=== PATIENT | female | born 1975 | race Caucasian/White ===

== ENCOUNTER 2016-08-11 23:11 | Inpatient (IN) | payer BC, OTHER ==
[~2016-08-11] VITALS: Ht 152.4 cm; Wt 63.5 kg
[~2016-08-11 23:11] MED LIST: AMITRIPTYLINE H25 M2 PO; DYRENIUM50 MG PO; IBUPROFEN 600600 M1 PO; INDOMETHACIN 5050 M1 PO; INDOMETHACIN 5050 MG PO; LISINOPRIL5 MG PO; MACROBID 100 M100 M1 PO; NORCO 5-325 TA1 EACH PO; ONDANSETRON HCL4 M2 PO; PEPCID20 MG PO; PHENERGAN 25 MG25 M1 PO; PREDNISONE 20 M20 MG PO; PROTONIX40 M1 PO; TRANSDERM-SCO1 PATC1 TD; ZOFRAN ODT4 MG PO
[2016-08-11 23:14] VITALS: BP 176/125
[2016-08-12 00:20] LABS: ABSOLUTE NEUTROPHILS 8.3 thou/uL (1.4-8.2); BASOPHILS 0.7 % (0.0-2.0); EOSINOPHILS 1.2 % (0.0-3.0); HEMATOCRIT 41.6 % (37.0-47.0); HEMOGLOBIN 14.4 gm/dL (12.0-15.0); LYMPHOCYTES 14.4 % (24.0-44.0); MCH 36.5 pg (26.0-34.0); MCHC 34.7 g/dL (28.0-37.0); MCV 105.1 fL (80.0-100.0); MONOCYTES 7.2 % (1.0-8.0); PLATELET COUNT 312 thou/uL (150-400); POLYS 76.5 % (36.0-66.0); RBC 3.96 mil/uL (4.20-5.00); URINE BILIRUBIN 2+ (Negative); URINE BLOOD TRACE (Negative); URINE GLUCOSE-RANDOM* NEGATIVE (Negative); URINE KETONES NEGATIVE (Negative); URINE LEUKOCYTES-REFLEX NEGATIVE (Negative); URINE PROTEIN (DIPSTICK) 2+ (Negative); URINE SPECIFIC GRAVITY >= 1.030 (1.003-1.035); WBC 10.9 thou/uL (4.0-11.0)
[2016-08-12 00:22] LABS: ICTOTEST (BILI CONFIRMATORY) Positive (Negative); URINE COLOR DARK YELLOW
[2016-08-12 00:23] LABS: MANUAL DIFF NO
[2016-08-12 00:28] LABS: CALCIUM 8.5 mg/dL (8.5-10.1)
[2016-08-12 00:29] LABS: POTASSIUM 2.5 mmol/L (3.5-5.1)
[2016-08-12 00:32] LABS: HYALINE CASTS 0-3 Few /LPF (None Seen); SQUAMOUS >10 Many /LPF (0-3)
[2016-08-12 00:33] LABS: CRYSTALS None Seen /LPF (None Seen); URINE RBC 0-2 Rare /HPF (0-2); URINE WBC-REFLEX 6-15 Few /HPF (0-5)
[2016-08-12 08:00] VITALS: BP 122/83
[2016-08-12 09:35] VITALS: BP 158/103
[2016-08-12 12:30] VITALS: BP 123/80
[2016-08-12 16:00] VITALS: BP 136/98
[2016-08-12 20:05] VITALS: BP 149/99
[2016-08-13 05:00] VITALS: BP 146/90
[2016-08-13 05:18] LABS: HEMATOCRIT 36.4 % (37.0-47.0); HEMOGLOBIN 12.6 gm/dL (12.0-15.0); MCH 36.7 pg (26.0-34.0); MCHC 34.6 g/dL (28.0-37.0); MCV 106.1 fL (80.0-100.0); RBC 3.43 mil/uL (4.20-5.00); RDW 14.9 % (10.5-14.5); WBC 6.1 thou/uL (4.0-11.0)
[2016-08-13 05:33] LABS: CALCIUM 7.2 mg/dL (8.5-10.1); POTASSIUM 3.5 mmol/L (3.5-5.1)
[2016-08-13 09:25] VITALS: BP 121/80
[2016-08-13] MEDS ORDERED: HYDROCODONE-AP1 EAC6 PO (10:00)
[2016-08-13] MEDS ORDERED: LEVAQUIN 500 M500 M2 PO (10:00)
[2016-08-13] MEDS ORDERED: ZOFRAN ODT4 MG DISSOLVE (10:03)
[2016-08-13 10:04] VITALS: BP 146/90
== END 2016-08-13 10:54 | disposition home or self-care (01) | DRG 603 ==
LOC: ER 23:11 → 4E 08-12 01:41 → EROBS 08-12 01:41 → 4E 08-12 08:18
PROVIDERS: Emergency Medicine; Nurse Practitioner Family
DX: L03.115 Cellulitis of right lower limb (principal); N39.0 Urinary tract infection, site not specified; I10 Essential (primary) hypertension; F17.210 Nicotine dependence, cigarettes, uncomplicated; E87.6 Hypokalemia; Z88.8 Allergy status to other drugs, medicaments and biological substances; Z79.899 Other long term (current) drug therapy
CPT/HCPCS: 10084

== ENCOUNTER 2016-09-06 06:06 | Observation (INO) | payer BC, OTHER ==
[~2016-09-06] VITALS: Ht 152.4 cm; Wt 63.5 kg
--- NOTE | ~2016-09-06 | S ---
[facility] [place] [address] SURGICAL PATH RPT PROCEDURE Name: MILADIS ELLIOTT Room #: 447-P [place] Pablo Goodrich#: [id number] Admission: 09/06/16 Date of : 75 Discharge: 09/11/16 Report #: [id number] Path Case #: [id number] PATHOLOGY REPORT COLLECTION DATE: 09/10/2016 RECEIVED DATE: 09/10/2016 SUBMITTING PHYS: Dr. Anderson Braun OTHER PHYS: Dr. Garry Wright SPECIMEN(S) RECEIVED: A.Duodenum B.Gastritis * * * * * * * * * * * * FINAL DIAGNOSIS: A. Small bowel, biopsy: - Mild chronic inflammation. - Normal villous architecture. B. Stomach, "gastritis", biopsy: - Chronic superficial gastritis, mild. - No evidence of Helicobacter pylori on immunoperoxidase stain. (SKM:bisi; 09/12/2016) PATHOLOGIST: Michel Gonzalez M.D. REPORT ELECTRONICALLY SIGNED BY: Michel Gonzalez M.D. DATE/TIME: 09/12/2016 11:29 * * * * * * * * * * * * GROSS PATHOLOGY: A. Received in formalin labeled "Miladis Elliott, Duodenum, rule out sprue," are 3 segments of lennon soft tissue measuring 1.2 x 0.2 x 0.2 cm in aggregate dimensions and ranging from 0.2 to 0.7 cm in maximum dimension. The specimen is submitted entirely in cassette A1. B. Received in formalin labeled "Miladis Elliott, gastritis," are 4 segments of lennon soft tissue measuring 1.5 x 0.2 x 0.2 cm in aggregate dimensions and ranging from 0.1 to 0.5 cm in maximum dimension. The specimen is submitted entirely in cassette B1. (BONNIE; 09/11/2016) CLINICAL HISTORY: Melena, nausea, vomiting, abdominal pain, gastritis, esophagitis INITIAL CPT CODE(S): A; [address] [address] SURGICAL PATH RPT PROCEDURE Name: MILADIS ELLIOTT Room #: 447-P RHEA Goodrich#: [id number] Admission: 09/06/16 Date of : 75 Discharge: 09/11/16 Report #: [id number] Path Case #: [id number]; [id number] Professional services performed by [facility] at [address], [place] [address] Technical services performed by [facility] at [address] [place] [address], [facility] [address] [address]. [facility] [address] [place] [address] PHONE: [phone] DIRECTOR: Clif Beckham M.D. * * * END OF REPORT * * *
--- NOTE | ~2016-09-06 | HC ---
[facility] [place] [address] CONSULTATION Name: MILADIS REYES Room #: 447-P [facility]..#: [id number] Admission: 09/06/16 Attend Phys: Garry Wright MD Discharge: Date of : 75 Report #: [id number] THIS REPORT FOR: //name// CC: FAM unknown Garry Wright HISTORY OF PRESENT ILLNESS: The patient is a 41-year-old female who was admitted approximately 25 days ago for cellulitis and received significant antibiotics, both IV and oral and was eventually discharged and developed nausea and vomiting approximately 5 days after completing her oral antibiotic course as an outpatient. She presented with elevated white count and hypokalemia after several days of nausea and vomiting. She denies significant change in bowel pattern. No diarrhea. She has had left and right lower quadrant abdominal pain, which has resolved, but also epigastric pain which persists. PAST MEDICAL HISTORY: Notable for hypertension, appendicitis, cholecystectomy and knee surgery. MEDICATIONS AT HOME: Include only lisinopril. FAMILY HISTORY: Noncontributory. SOCIAL HISTORY: Occasional alcohol. No smoking. REVIEW OF SYSTEMS: Negative for weight loss, weakness or fatigue. She denies head, eyes, ears, nose or throat complaints. Denies chest pain, chest palpitation, chest pressure, cough, shortness of breath, wheezing, genitourinary, musculoskeletal or neuropsychiatric complaints. PHYSICAL EXAMINATION: GENERAL: The patient is afebrile. VITAL SIGNS: Stable. HEENT: Nonicteric. NECK: No JVD, thyromegaly or bruits. CARDIOVASCULAR: Regular. LUNGS: Clear. ABDOMEN: Soft, diffusely tender without rebound or guarding. Mild epigastric discomfort. No hepatosplenomegaly. No stigmata of chronic liver disease. No abnormal masses or bruits. EXTREMITIES: Deferred. NEUROLOGIC: Deferred. RECTAL: Deferred. LABORATORY DATA: Pertinent labs include white count 22.4, hemoglobin 15.2, platelet count 346. Chemistry notable for on presentation, magnesium 2.6, potassium 3.2. AST 149, ALT 62, alkaline phosphatase 172, total protein 5.6, albumin 2.8, and total bilirubin of 1.3. [address] [address] CONSULTATION Name: MILADIS REYES Room #: 447-[facility].#: [id number] Admission: 09/06/16 Attend Phys: Garry Wright MD Discharge: Date of : 75 Report #: [id number] IMAGING STUDIES: Of note, abdominal ultrasound is pending. CT abdomen reveals no acute abnormality. ASSESSMENT AND PLAN: In summary, the patient has a presentation consistent with acute gastroenteritis. Of course, Clostridium difficile would be a consideration after prolonged course of antibiotics; however, she has no diarrhea or significant colitic symptoms. At this point, I would treat her symptomatically with antiemetics as well as PPI therapy and hydration and replacement of electrolytes. We will follow concurrently. I appreciate the opportunity to participate in the care of this nice woman. <ELECTRONICALLY SIGNED> By: Alex Gaines MD 09/08/16 1316 1221 1246 Alex Gaines MD /nt
[~2016-09-06 06:06] MED LIST changes: +HYDROCODONE-AP1 EAC6 PO; +LEVAQUIN 500 M500 M2 PO; +ZOFRAN ODT4 MG DISSOLVE
[2016-09-06 06:10] VITALS: BP 155/108
[2016-09-06 06:51] LABS: HEMATOCRIT 43.3 % (37.0-47.0); HEMOGLOBIN 15.2 gm/dL (12.0-15.0); MCH 36.6 pg (26.0-34.0); MCHC 35.2 g/dL (28.0-37.0); MCV 103.8 fL (80.0-100.0); PLATELET COUNT 346 thou/uL (150-400); RBC 4.17 mil/uL (4.20-5.00); RDW 15.1 % (10.5-14.5); WBC 22.4 thou/uL (4.0-11.0)
[2016-09-06 06:53] LABS: MANUAL DIFF YES
[2016-09-06 06:59] LABS: ALBUMIN 3.7 g/dL (3.4-5.0); CALCIUM 8.4 mg/dL (8.5-10.1); CREATININE 0.9 mg/dL (0.6-1.0); TOTAL PROTEIN 7.4 g/dL (6.4-8.2)
[2016-09-06 07:03] LABS: POTASSIUM 2.8 mmol/L (3.5-5.1)
[2016-09-06 07:19] LABS: ABSOLUTE NEUTROPHILS 18.1 thou/uL (1.4-8.2); TOTAL CELL COUNT 100
[2016-09-06 07:20] LABS: ANISOCYTOSIS 1+; MACROCYTES 1+
[2016-09-06 08:43] VITALS: BP 155/108
[2016-09-06 09:07] VITALS: BP 154/100
[2016-09-06] MEDS ORDERED: ZESTRIL40 MG PO (10:10)
[2016-09-06 15:43] VITALS: BP 147/99
[2016-09-06 19:30] VITALS: BP 153/92
[2016-09-06 20:09] LABS: MAGNESIUM 1.6 mg/dL (1.8-2.4)
[2016-09-06 20:11] LABS: POTASSIUM 2.5 mmol/L (3.5-5.1)
[2016-09-07 00:50] LABS: URINE BILIRUBIN 2+ (Negative); URINE BLOOD TRACE (Negative); URINE COLOR YELLOW; URINE GLUCOSE-RANDOM* NEGATIVE (Negative); URINE KETONES NEGATIVE (Negative); URINE LEUKOCYTES-REFLEX TRACE (Negative); URINE PROTEIN (DIPSTICK) TRACE (Negative); URINE SPECIFIC GRAVITY 1.025 (1.003-1.035)
[2016-09-07 00:54] LABS: ICTOTEST (BILI CONFIRMATORY) Positive (Negative)
[2016-09-07 00:59] LABS: CASTS None Seen /LPF (None Seen); SQUAMOUS >10 Many /LPF (0-3); URINE RBC None Seen /HPF (0-2); URINE WBC-REFLEX 0-5 Rare /HPF (0-5)
[2016-09-07 01:00] LABS: CRYSTALS None Seen /LPF (None Seen); TRANSITIONAL EPITHEL CELL 0-3 Few /LPF (None Seen)
[2016-09-07 02:23] LABS: HEMATOCRIT 35.6 % (37.0-47.0); MCH 37.1 pg (26.0-34.0); MCHC 35.1 g/dL (28.0-37.0); MCV 105.7 fL (80.0-100.0); RBC 3.37 mil/uL (4.20-5.00); RDW 15.2 % (10.5-14.5); WBC 9.5 thou/uL (4.0-11.0)
[2016-09-07 02:31] LABS: HEMOGLOBIN 12.5 gm/dL (12.0-15.0)
[2016-09-07 02:39] LABS: CALCIUM 7.2 mg/dL (8.5-10.1); CREATININE 0.6 mg/dL (0.6-1.0)
[2016-09-07 02:45] LABS: POTASSIUM 2.8 mmol/L (3.5-5.1)
[2016-09-07 05:52] VITALS: BP 170/106
[2016-09-07 08:25] VITALS: BP 150/101
[2016-09-07 09:18] LABS: MAGNESIUM 1.3 mg/dL (1.8-2.4); POTASSIUM 3.3 mmol/L (3.5-5.1)
[2016-09-07 13:07] LABS: MAGNESIUM 2.6 mg/dL (1.8-2.4); POTASSIUM 3.2 mmol/L (3.5-5.1)
[2016-09-07 16:00] VITALS: BP 143/102
[2016-09-07 20:02] VITALS: BP 170/98
[2016-09-08 05:37] LABS: MCV 109.3 fL (80.0-100.0); WBC 7.2 thou/uL (4.0-11.0)
[2016-09-08 05:39] LABS: HEMATOCRIT 35.9 % (37.0-47.0); HEMOGLOBIN 12.3 gm/dL (12.0-15.0); MCH 37.4 pg (26.0-34.0); MCHC 34.2 g/dL (28.0-37.0); RBC 3.29 mil/uL (4.20-5.00); RDW 15.7 % (10.5-14.5)
[2016-09-08 06:03] LABS: ALBUMIN 2.8 g/dL (3.4-5.0); CALCIUM 7.7 mg/dL (8.5-10.1); CREATININE 0.7 mg/dL (0.6-1.0); POTASSIUM 3.7 mmol/L (3.5-5.1); TOTAL BILIRUBIN 1.3 mg/dL (<0.1-1.0); TOTAL PROTEIN 5.6 g/dL (6.4-8.2)
[2016-09-08 08:30] VITALS: BP 176/109
[2016-09-08 16:00] VITALS: BP 196/109
[2016-09-08 20:30] VITALS: BP 175/104
[2016-09-09 00:14] VITALS: BP 185/112
[2016-09-09 03:50] VITALS: BP 146/91
[2016-09-09 04:48] LABS: HEMATOCRIT 33.1 % (37.0-47.0); HEMOGLOBIN 11.4 gm/dL (12.0-15.0); MCH 37.8 pg (26.0-34.0); MCHC 34.6 g/dL (28.0-37.0); MCV 109.4 fL (80.0-100.0); RBC 3.02 mil/uL (4.20-5.00); RDW 15.3 % (10.5-14.5); WBC 7.5 thou/uL (4.0-11.0)
[2016-09-09 05:50] LABS: ALBUMIN 2.4 g/dL (3.4-5.0); CALCIUM 7.6 mg/dL (8.5-10.1); CREATININE 0.8 mg/dL (0.6-1.0); POTASSIUM 3.2 mmol/L (3.5-5.1); TOTAL BILIRUBIN 0.4 mg/dL (<0.1-1.0); TOTAL PROTEIN 5.2 g/dL (6.4-8.2)
[2016-09-09 08:00] VITALS: BP 169/97
[2016-09-09 16:00] VITALS: BP 207/117
[2016-09-09 20:12] VITALS: BP 185/114
[2016-09-10 04:44] VITALS: BP 178/107
[2016-09-10 05:40] LABS: HEMATOCRIT 35.3 % (37.0-47.0); MCH 37.2 pg (26.0-34.0); MCHC 34.1 g/dL (28.0-37.0); RBC 3.24 mil/uL (4.20-5.00); RDW 15.4 % (10.5-14.5); WBC 7.1 thou/uL (4.0-11.0)
[2016-09-10 05:50] LABS: CALCIUM 7.8 mg/dL (8.5-10.1); CREATININE 0.7 mg/dL (0.6-1.0); POTASSIUM 3.5 mmol/L (3.5-5.1)
[2016-09-10 08:48] VITALS: BP 177/114
[2016-09-10 16:09] VITALS: BP 151/93
[2016-09-10 20:12] VITALS: BP 128/77
[2016-09-11 04:50] VITALS: BP 150/98
[2016-09-11 08:19] VITALS: BP 129/84
[2016-09-11] MEDS ORDERED: PHENERGAN 25 MG25 M1 PO (10:08)
[2016-09-11] MEDS ORDERED: CARVEDILOL12.5 MG PO (10:09)
[2016-09-11] MEDS ORDERED: AMOXICILLIN 50500 M1 PO (10:09)
[2016-09-11] MEDS ORDERED: CATAPRES-TTS 10.1 M1 TRANSDERM (10:09)
[2016-09-11] MEDS ORDERED: CARAFATE 11 GM/10 M1 PO (10:10)
[2016-09-11] MEDS ORDERED: HYDROCODON-ACE1 EAC7 PO (10:10)
[2016-09-11] MEDS ORDERED: PROTONIX40 M1 PO (10:11)
[2016-09-11 10:36] VITALS: BP 162/100
== END 2016-09-11 12:31 | disposition home or self-care (01) ==
LOC: ER 06:06 → 4S 07:26 → EROBS 07:26 → 4S 08:44
PROVIDERS: Emergency Medicine; Hospitalist
DX: R11.2 Nausea with vomiting, unspecified (principal); K29.70 Gastritis, unspecified, without bleeding; D72.829 Elevated white blood cell count, unspecified; K20.9 Esophagitis, unspecified; E87.6 Hypokalemia; I10 Essential (primary) hypertension; M10.9 Gout, unspecified; L03.90 Cellulitis, unspecified; M65.829 Other synovitis and tenosynovitis, unspecified upper arm; F17.200 Nicotine dependence, unspecified, uncomplicated; Z72.89 Other problems related to lifestyle
CPT/HCPCS: 62110; 62900; 70005

== ENCOUNTER 2016-09-27 21:00 | Inpatient (IN) | payer BC, OTHER ==
[~2016-09-27] VITALS: Ht 152.4 cm; Wt 63.5 kg
--- NOTE | ~2016-09-27 | EKG ---
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 : 1975 Requested By: Sharla Magallanes Order Number: [id number] MD: Armando Tyler Measurements Intervals [place]ede Rate: 100 P: 27 DE: 149 QRS: 31 QRSD: 99 T: 34 QT: 406 QTc: 524 Interpretive Statements Sinus tachycardia Probable left atrial enlargement Prolonged QT interval Compared to ECG 08/22/2015 09:05:56 Prolonged QT interval now present Electronically Signed On 09-28-2016 9:57:33 CDT by Armando Tyler [email or web address] <ELECTRONICALLY SIGNED> By: Armando Tyler MD, [facility] 09/28/16 0957 0 0 Armando Tyler MD, [facility] /EPI
--- NOTE | ~2016-09-27 | HC ---
[facility] [place] [address] CONSULTATION Name: MILADIS REYES JOAN Room #: 407-P [facility] IN M.R.#: [id number] Admission: 09/28/16 Attend Phys: Garry Wrigth MD Discharge: Date of : 75 Report #: [id number] THIS REPORT FOR: //name// CC: FAM unknown Garry Wright DATE OF CONSULTATION: 09/28/2016. Requesting person is MAURICE Gardiner. REASON FOR CONSULTATION: Dysphagia, possible esophageal dilation. HISTORY OF PRESENT ILLNESS: This is a 41-year-old female with recurrent right upper quadrant abdominal pain, nausea and vomiting. This seems to improve if she is on antibiotics. Interestingly, the patient was just in the hospital for some of the same issues and ended up with an EGD by Dr. Braun on 09/10/2016. This revealed reflux esophagitis that was LA grade C, hiatal hernia and gastritis. There was talk about if dysphagia continues that a repeat endoscopy could be done as an outpatient. She does still have some mild dysphagia, but this is really the least of the symptoms that she is having, the question is raised about doing another endoscopy. The patient is not clear if this would be helpful and I agree with that. PAST MEDICAL HISTORY: Pertinent for hypertension, appendicitis, cholecystectomy in the past and a prior knee surgery. MEDICATIONS: As an outpatient were lisinopril and proton pump inhibitor as well as sucralfate. I believe. ALLERGIES: STATED TO AMLODIPINE. CURRENT MEDICATIONS: Include magnesium supplement, metoclopramide, morphine p.r.n., Phenergan, potassium, Zofran p.r.n., carvedilol, ceftriaxone, enoxaparin, fentanyl p.r.n., lisinopril, p.r.n., metoclopramide, Pepcid 20 mg b.i.d. IV. FAMILY AND SOCIAL HISTORY: Noncontributory. PHYSICAL EXAMINATION: LUNGS: Clear. CARDIOVASCULAR: Regular rhythm. ABDOMEN: Soft. Bowel sounds are present and normoactive. No hepatosplenomegaly. No masses palpated. There is mild diffuse tenderness throughout. There are no peritoneal findings. VITAL SIGNS: Maximum temperature since admission is 99.7. She has been hemodynamically stable. [address] [address] CONSULTATION Name: MILADIS REYES Room #: [address] [place] [address] [place] [facility].#: [id number] Admission: 09/28/16 Attend Phys: Garry Wright MD Discharge: Date of : 75 Report #: [id number] LABORATORY DATA: Reviewing the lab, potassium is now 3.4. Other electrolytes are normal. BUN and creatinine are normal. Glucose is 112. Total bilirubin is 1.1. Other LFTs are normal with a direct bilirubin of 0.3, white cell count 14.3, hemoglobin 16.1, platelet count is 435,000. There is no recent radiologic data to review. IMPRESSION: Recurrent nausea, vomiting, abdominal pain and mild dysphagia. Recommend clinical observation, tentatively think about an EGD, but I do not think this is going to help the majority of her symptoms. She just had an endoscopy earlier this month. Dr. Braun will check back on 09/30/2016. <ELECTRONICALLY SIGNED> By: Cj Oneill MD 09/29/16 0553 0802 0841 Cj Oneill MD /nt
[~2016-09-27 21:00] MED LIST changes: +AMOXICILLIN 50500 M1 PO; +CARAFATE 11 GM/10 M1 PO; +CARVEDILOL12.5 MG PO; +CATAPRES-TTS 10.1 M1 TRANSDERM; +HYDROCODON-ACE1 EAC7 PO; +ZESTRIL40 MG PO
[2016-09-27 21:01] VITALS: BP 171/128
[2016-09-27 22:07] LABS: BASOPHILS 1.3 % (0.0-2.0); EOSINOPHILS 0.6 % (0.0-3.0); HEMATOCRIT 46.1 % (37.0-47.0); HEMOGLOBIN 16.1 gm/dL (12.0-15.0); LYMPHOCYTES 15.4 % (24.0-44.0); MCHC 34.9 g/dL (28.0-37.0); MCV 103.2 fL (80.0-100.0); MONOCYTES 5.7 % (1.0-8.0); PLATELET COUNT 435 thou/uL (150-400); RBC 4.47 mil/uL (4.20-5.00); RDW 14.5 % (10.5-14.5); WBC 14.3 thou/uL (4.0-11.0)
[2016-09-27 22:10] LABS: MANUAL DIFF NO
[2016-09-28 01:00] LABS: CALCIUM 8.2 mg/dL (8.5-10.1); CREATININE 0.8 mg/dL (0.6-1.0)
[2016-09-28 01:06] LABS: ALBUMIN 3.6 g/dL (3.4-5.0); DIRECT BILIRUBIN 0.3 mg/dL (<0.1-0.3); TOTAL BILIRUBIN 1.1 mg/dL (<0.1-1.0); TOTAL PROTEIN 7.1 g/dL (6.4-8.2)
[2016-09-28 01:08] LABS: MAGNESIUM 0.9 mg/dL (1.8-2.4)
[2016-09-28 02:31] VITALS: BP 144/121; BP 171/128
[2016-09-28 03:00] LABS: URINE BILIRUBIN 2+ (Negative); URINE BLOOD TRACE (Negative); URINE COLOR YELLOW; URINE GLUCOSE-RANDOM* NEGATIVE (Negative); URINE KETONES 2+ (Negative); URINE LEUKOCYTES-REFLEX 1+ (Negative); URINE PROTEIN (DIPSTICK) 2+ (Negative); URINE SPECIFIC GRAVITY >= 1.030 (1.003-1.035)
[2016-09-28 03:08] LABS: ICTOTEST (BILI CONFIRMATORY) Positive (Negative); SQUAMOUS >10 Many /LPF (0-3)
[2016-09-28 03:09] LABS: CASTS None Seen /LPF (None Seen); CRYSTALS None Seen /LPF (None Seen); URINE RBC 0-2 Rare /HPF (0-2); URINE WBC-REFLEX 6-15 Few /HPF (0-5)
[2016-09-28 04:11] VITALS: BP 132/89
[2016-09-28 06:54] LABS: CALCIUM 7.8 mg/dL (8.5-10.1); CREATININE 0.8 mg/dL (0.6-1.0); MAGNESIUM 1.7 mg/dL (1.8-2.4); POTASSIUM 3.4 mmol/L (3.5-5.1)
[2016-09-28 08:07] VITALS: BP 137/87
[2016-09-28 17:01] VITALS: BP 132/88
[2016-09-29 05:34] LABS: HEMATOCRIT 34.1 % (37.0-47.0); MCH 36.5 pg (26.0-34.0); MCV 107.3 fL (80.0-100.0); RBC 3.17 mil/uL (4.20-5.00); WBC 5.9 thou/uL (4.0-11.0)
[2016-09-29 05:40] LABS: HEMOGLOBIN 11.6 gm/dL (12.0-15.0)
[2016-09-29 05:50] LABS: ALBUMIN 2.7 g/dL (3.4-5.0); CALCIUM 7.6 mg/dL (8.5-10.1); CREATININE 0.8 mg/dL (0.6-1.0); POTASSIUM 3.5 mmol/L (3.5-5.1); TOTAL BILIRUBIN 0.6 mg/dL (<0.1-1.0); TOTAL PROTEIN 5.5 g/dL (6.4-8.2)
[2016-09-29 09:16] VITALS: BP 129/75
[2016-09-29 15:51] VITALS: BP 163/94
[2016-09-29 19:43] VITALS: BP 174/104
[2016-09-30 05:17] VITALS: BP 152/90
[2016-09-30 06:42] LABS: HEMATOCRIT 34.9 % (37.0-47.0); HEMOGLOBIN 11.8 gm/dL (12.0-15.0); MCH 36.3 pg (26.0-34.0); MCHC 33.8 g/dL (28.0-37.0); MCV 107.3 fL (80.0-100.0); RBC 3.25 mil/uL (4.20-5.00); RDW 14.5 % (10.5-14.5); WBC 7.1 thou/uL (4.0-11.0)
[2016-09-30 06:57] LABS: ALBUMIN 2.9 g/dL (3.4-5.0); CALCIUM 8.1 mg/dL (8.5-10.1); CREATININE 0.7 mg/dL (0.6-1.0); POTASSIUM 3.3 mmol/L (3.5-5.1); TOTAL BILIRUBIN 0.4 mg/dL (<0.1-1.0); TOTAL PROTEIN 5.7 g/dL (6.4-8.2)
[2016-09-30 07:55] VITALS: BP 142/80
[2016-09-30] MEDS ORDERED: BENTYL 10 MG CA10 M1 PO (14:40)
[2016-09-30] MEDS ORDERED: HYDROCODON-ACE1 EAC7 PO (14:40)
[2016-09-30 16:00] VITALS: BP 179/100
[2016-09-30 19:24] VITALS: BP 158/104
[2016-10-01 02:52] VITALS: BP 154/87
[2016-10-01 08:36] VITALS: BP 159/97
[2016-10-01] MEDS ORDERED: HYOSCYAMINE0.125 M1 PO (09:19)
[2016-10-01] MEDS ORDERED: PHENERGAN 25 MG25 M1 PO (09:19)
[2016-10-01 10:33] VITALS: BP 159/97
== END 2016-10-01 11:31 | disposition home or self-care (01) | DRG 445 ==
LOC: ER 21:00 → 4N 09-28 01:42 → EROBS 09-28 01:42 → 4N 09-28 03:08
PROVIDERS: Emergency Medicine; Hospitalist; Nurse Practitioner Family
DX: K83.4 Spasm of sphincter of Oddi (principal); N39.0 Urinary tract infection, site not specified; G43.A0 Cyclical vomiting, in migraine, not intractable; I10 Essential (primary) hypertension; E87.6 Hypokalemia; E83.42 Hypomagnesemia; B96.1 Klebsiella pneumoniae [K. pneumoniae] as the cause of diseases classified elsewhere; D72.829 Elevated white blood cell count, unspecified; Z88.8 Allergy status to other drugs, medicaments and biological substances; Z79.899 Other long term (current) drug therapy; Z90.49 Acquired absence of other specified parts of digestive tract; Z90.711 Acquired absence of uterus with remaining cervical stump
CPT/HCPCS: 10091

== ENCOUNTER 2017-07-12 22:31 | Inpatient (IN) | payer BC, OTHER ==
[~2017-07-12] VITALS: Ht 152.4 cm; Wt 58.6 kg
--- NOTE | ~2017-07-12 | EKG ---
[address] [address] ELECTROCARDIOGRAM REPORT Name: MILADIS REYES Room #: 364-P ADM IN .R.#: [id number] Admission: 07/13/17 Attend Phys: Flavio Brooks MD Discharge: Date of : 75 Report #: [id number] THIS REPORT FOR: //name// 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 : 1975 Requested By: Gerhard Lopez Order Number: [id number] MD: Dave Pulido Measurements Intervals Buckley Rate: 127 P: 60 CO: 127 QRS: 68 QRSD: 101 T: 58 QT: 412 QTc: 600 Interpretive Statements Sinus tachycardia Compared to ECG 09/28/2016 02:11:32 Electronically Signed On 07-14-2017 8:09:02 CDT by Dave Pulido [email or web address] <ELECTRONICALLY SIGNED> By: Dave Pulido MD 07/14/17 0809 19 19 Dave Pulido MD /JANIYA
--- NOTE | ~2017-07-12 | HC ---
[facility] [place] [address] CONSULTATION Name: MILADIS REYES Room #: 364-P ADM IN M.R.#: [id number] Admission: 07/13/17 Attend Phys: Flavio Brooks MD Discharge: Date of : 75 Report #: [id number] THIS REPORT FOR: //name// CC: FAM hakan Bernstein MD Physician staff DATE OF SERVICE: 07/13/2017 HISTORY OF PRESENT ILLNESS: The patient is a 42-year-old female with complaints of new onset nausea, vomiting, right upper quadrant abdominal pain. She has been evaluated by myself in the past, which included an upper endoscopy showing grade C erosive esophagitis. Biopsies at that time were negative for celiac sprue as well as H. pylori. She has had a previous cholecystectomy in 2004 for similar symptoms. She had referral to [facility] for possibility of sphincter of Oddi dysfunction, recommended a manometry with possible ERCP. It is unclear if this was ever performed. She did have an MRCP on 12/16/2016, which showed bile ducts being normal. No evidence of filling defects visualized. The pancreatic duct was normal. The liver was normal. Small pleural effusions were noted. Again, the patient has had a previous cholecystectomy. CT scan of the abdomen and pelvis today on admission showed diffuse circumferential colonic wall thickening with some additional fatty infiltration of the right colon suggesting manifestations of acute on chronic colitis, which is nonspecific. The patient denies any significant diarrhea, although she had a loose stool in the Emergency Room apparently. She denies any blood in her stools. She believes she had a colonoscopy at , but is unsure. Her primary complaint for this admission again was abdominal pain and nausea and vomiting. She has not had any further nausea or vomiting since being on the floor at this time. She denies any chest pain or shortness of breath currently, although she was having some shortness of breath after vomiting. She has been diagnosed with possible cyclic vomiting syndrome in the past as well. PAST MEDICAL HISTORY: Gastroesophageal reflux disease with history of esophagitis, hypertension, partial hysterectomy, appendectomy, previous cholecystectomy, possible cyclic vomiting syndrome. ALLERGIES: NORVASC. MEDICATIONS ON ADMISSION: Hyoscyamine, lisinopril. REVIEW OF SYSTEMS: As per HPI. SOCIAL HISTORY: She does actively smoke and consumes alcohol on an occasional basis. [facility] [address] [place] [address] CONSULTATION Name: MILADIS REYES Room #: 364-P [facility] IN [facility].#: [id number] Admission: 07/13/17 Attend Phys: Flavio Brooks MD Discharge: Date of : 75 Report #: [id number] FAMILY HISTORY: Negative for colon cancer or inflammatory bowel disease. PHYSICAL EXAMINATION: VITAL SIGNS: Temperature is 97.4, pulse 81, blood pressure 141/103, respiratory rate is 22. GENERAL: She is alert and oriented x 3, in no acute distress. HEENT: Sclerae nonicteric. Oropharynx clear. NECK: Supple, without lymphadenopathy. CARDIOVASCULAR: Regular rate and rhythm. CHEST: Clear to auscultation bilaterally. ABDOMEN: Soft. She is mildly tender to palpation in the periumbilical region, right upper quadrant, nondistended, positive bowel sounds. EXTREMITIES: No cyanosis, clubbing or edema. LABORATORY DATA: Sodium 137, potassium 3.5, chloride 97, bicarb 22, BUN 7, creatinine 0.8, glucose 135. AST 187, lipase 238, total bilirubin is 1.8, magnesium 1.3, alkaline phosphatase 159, ALT is 54, albumin 3.8, total protein 7.6, troponin less than 0.04. Alcohol less than 10. WBC 14.7, hemoglobin 14.5, MCV 108.2, platelet count is 272. HCG is negative. ASSESSMENT AND PLAN: Nausea, vomiting, abdominal pain. The patient does have a previous history of possible cyclic vomiting, which could obviously cause her recurrent nausea and vomiting. On CT; however, she does have evidence of a colitis, which was not noted in the past. She denies any significant diarrhea. There has been no recent antibiotics other than approximately a month and a half ago. No significant change in her medications. Agree with stool studies initially. IV antibiotics have been started. If stool studies are negative, may need to consider colonoscopy or flexible sigmoidoscopy. Again, it is unclear if she has had a recent colonoscopy at [facility]. We will try to obtain these records. The patient has a known history of grade C erosive esophagitis and it does not appear that she has been on PPI therapy. Therefore, we will start Protonix here and discontinue Pepcid. In the meantime, continue supportive care for her nausea and vomiting. She appears to be improving at this time. We will also obtain records to see if the patient has been evaluated for the possibility of sphincter of Oddi dysfunction at [facility]. Thank you for allowing me to participate in her care. <ELECTRONICALLY SIGNED> By: Anderson Braun MD 07/14/17 1445 1444 193 Anderson Braun MD /nt
[~2017-07-12 22:31] MED LIST changes: +BENTYL 10 MG CA10 M1 PO; +HYOSCYAMINE0.125 M1 PO; +SCOPOLAMINE1 EACH TRANSDERM
[2017-07-12 22:34] VITALS: BP 155/118
[2017-07-13] VITALS (9 sets, daily range): BP systolic 121–176; BP diastolic 86–112
[2017-07-13 00:01] LABS: ABSOLUTE NEUTROPHILS 12.3 thou/uL (1.4-8.2); BASOPHILS 0.8 % (0.0-2.0); EOSINOPHILS 0.1 % (0.0-3.0); HEMATOCRIT 41.6 % (37.0-47.0); HEMOGLOBIN 14.5 gm/dL (12.0-15.0); LYMPHOCYTES 7.3 % (24.0-44.0); MCH 37.7 pg (26.0-34.0); MCHC 34.8 g/dL (28.0-37.0); MCV 108.2 fL (80.0-100.0); MONOCYTES 7.8 % (1.0-8.0); PLATELET COUNT 272 thou/uL (150-400); RBC 3.84 mil/uL (4.20-5.00); RDW 17.9 % (10.5-14.5); WBC 14.7 thou/uL (4.0-11.0)
[2017-07-13 00:09] LABS: ANION GAP 18 mmol/L (7-16); BUN 7 mg/dL (7-18); CALCIUM 7.2 mg/dL (8.5-10.1); CHLORIDE 97 mmol/L (98-107); CO2 22 mmol/L (21-32); CREATININE 0.8 mg/dL (0.6-1.0); GLUCOSE 135 mg/dL (74-106); SODIUM 137 mmol/L (136-145)
[2017-07-13 00:13] LABS: POTASSIUM 2.6 mmol/L (3.5-5.1)
[2017-07-13 00:18] LABS: ALBUMIN 3.8 g/dL (3.4-5.0); LIPASE 238 U/L (73-393); SGOT 187 U/L (15-37); SGPT 54 U/L (30-65); TOTAL BILIRUBIN 1.8 mg/dL (<0.1-1.0); TOTAL PROTEIN 7.6 g/dL (6.4-8.2); TROPONIN-I < 0.04 ng/mL (<0.06)
[2017-07-13 14:45] LABS: URINE BILIRUBIN 1+ (Negative); URINE BLOOD TRACE (Negative); URINE CLARITY CLEAR; URINE COLOR YELLOW; URINE GLUCOSE-RANDOM* NEGATIVE (Negative); URINE KETONES NEGATIVE (Negative); URINE LEUKOCYTES-REFLEX NEGATIVE (Negative); URINE NITRITE-REFLEX NEGATIVE (Negative); URINE PROTEIN (DIPSTICK) TRACE (Negative); URINE UROBILINOGEN 0.2 E.U./dl (0.2-1.0)
[2017-07-13 14:49] LABS: ICTOTEST (BILI CONFIRMATORY) Positive (Negative)
[2017-07-13 20:48] LABS: AMP/METHAMP POSITIVE (Negative); BARBITURATES Negative (Negative); BENZODIAZEPINES Negative (Negative); COCAINE Negative (Negative); METHADONE Negative (Negative); OPIATES POSITIVE (Negative); PCP Negative (Negative)
[2017-07-14 00:48] VITALS: BP 125/91
[2017-07-14 01:02] LABS: CREATININE 0.7 mg/dL (0.6-1.0); POTASSIUM 4.3 mmol/L (3.5-5.1)
[2017-07-14 04:27] VITALS: BP 156/109
[2017-07-14 08:10] VITALS: BP 154/108
[2017-07-14 11:45] VITALS: BP 145/105
[2017-07-14 15:40] VITALS: BP 150/104
[2017-07-14 21:00] VITALS: BP 152/116
[2017-07-15 00:20] VITALS: BP 149/104
[2017-07-15 04:34] VITALS: BP 157/109
[2017-07-15 08:00] VITALS: BP 170/118
[2017-07-15 09:49] LABS: HEMATOCRIT 31.9 % (37.0-47.0); MCH 38.8 pg (26.0-34.0); MCHC 34.5 g/dL (28.0-37.0); MCV 112.5 fL (80.0-100.0); RBC 2.84 mil/uL (4.20-5.00); RDW 17.9 % (10.5-14.5); WBC 6.4 thou/uL (4.0-11.0)
[2017-07-15 15:38] VITALS: BP 154/106
[2017-07-15 16:00] VITALS: BP 147/105
[2017-07-15 20:00] VITALS: BP 164/116
[2017-07-16] VITALS (7 sets, daily range): BP systolic 130–183; BP diastolic 91–129
[2017-07-16 09:16] LABS: HEMATOCRIT 36.3 % (37.0-47.0); HEMOGLOBIN 12.4 gm/dL (12.0-15.0); MCH 38.6 pg (26.0-34.0); MCHC 34.2 g/dL (28.0-37.0); MCV 112.7 fL (80.0-100.0); RBC 3.22 mil/uL (4.20-5.00); WBC 9.4 thou/uL (4.0-11.0)
[2017-07-16 09:33] LABS: CALCIUM 7.5 mg/dL (8.5-10.1); CREATININE 0.6 mg/dL (0.6-1.0); POTASSIUM 4.3 mmol/L (3.5-5.1); TOTAL BILIRUBIN 0.6 mg/dL (<0.1-1.0); TOTAL PROTEIN 6.2 g/dL (6.4-8.2)
[2017-07-16 09:47] LABS: MAGNESIUM 0.9 mg/dL (1.8-2.4)
[2017-07-16 10:59] LABS: FOLIC ACID 11.2 ng/mL (8.6-58.9)
[2017-07-17 04:20] VITALS: BP 132/95
[2017-07-17 06:01] LABS: HEMATOCRIT 32.6 % (37.0-47.0); HEMOGLOBIN 11.3 gm/dL (12.0-15.0); MCH 39.3 pg (26.0-34.0); MCHC 34.8 g/dL (28.0-37.0); MCV 112.8 fL (80.0-100.0); RBC 2.89 mil/uL (4.20-5.00); RDW 18.3 % (10.5-14.5); WBC 7.4 thou/uL (4.0-11.0)
[2017-07-17 06:15] LABS: CALCIUM 8.1 mg/dL (8.5-10.1); CREATININE 0.7 mg/dL (0.6-1.0); MAGNESIUM 1.4 mg/dL (1.8-2.4); POTASSIUM 3.8 mmol/L (3.5-5.1)
[2017-07-17 06:18] LABS: ALBUMIN 2.7 g/dL (3.4-5.0); DIRECT BILIRUBIN 0.2 mg/dL (<0.1-0.3); TOTAL BILIRUBIN 0.4 mg/dL (<0.1-1.0); TOTAL PROTEIN 5.5 g/dL (6.4-8.2)
[2017-07-17 11:41] VITALS: BP 134/94
[2017-07-17] MEDS ORDERED: PROTONIX40 M1 PO (15:12)
[2017-07-17] MEDS ORDERED: COMPAZINE10 MG PO (15:13)
[2017-07-17 15:31] VITALS: BP 134/94
== END 2017-07-17 17:04 | disposition home or self-care (01) | DRG 392 ==
LOC: ER 22:31 → 3W 07-13 02:17 → EROBS 07-13 02:17 → 3W 07-13 03:26 → ENTRNSPT 07-17 16:57 → 3W 07-17 17:04
PROVIDERS: Emergency Medicine; Internal Medicine; Internal Medicine Gastroenterology; Nurse Practitioner Acute Care
DX: K52.9 Noninfective gastroenteritis and colitis, unspecified (principal); I10 Essential (primary) hypertension; F17.210 Nicotine dependence, cigarettes, uncomplicated; E87.6 Hypokalemia; K21.9 Gastro-esophageal reflux disease without esophagitis; N80.9 Endometriosis, unspecified; R00.0 Tachycardia, unspecified; G43.909 Migraine, unspecified, not intractable, without status migrainosus; E03.9 Hypothyroidism, unspecified; D53.9 Nutritional anemia, unspecified; E83.42 Hypomagnesemia; K20.9 Esophagitis, unspecified; I67.1 Cerebral aneurysm, nonruptured; F12.90 Cannabis use, unspecified, uncomplicated; F11.90 Opioid use, unspecified, uncomplicated; F15.90 Other stimulant use, unspecified, uncomplicated; G43.A0 Cyclical vomiting, in migraine, not intractable; Z90.49 Acquired absence of other specified parts of digestive tract; Z90.710 Acquired absence of both cervix and uterus; Z79.899 Other long term (current) drug therapy; Z88.8 Allergy status to other drugs, medicaments and biological substances
CPT/HCPCS: 10879